=== PATIENT | male | born 1985 | race Caucasian/White ===

== ENCOUNTER 2021-07-24 22:47 | Emergency (ER) | payer BC, OTHER ==
[~2021-07-24] VITALS: Ht 175 cm; Wt 102.0 kg
--- NOTE | 2021-07-25 01:32 | ED Cough/URI ---
General Chief Complaint: COVID19 Suspect/Confirmed Stated Complaint: COUGH/CONGESTION/DIARRHEA/RUNNY NOSE Nursing Triage Note: PT REPORTS SORE THROAT, RUNNY NOSE X4-5 DAYS. HAS KNOWN INFLUENZA EXPOSURE Source: patient History of Present Illness Date Seen by Provider: Jul 25, 2021 Time Seen by Provider: 00:18 Initial Comments PT ARRIVES VIA POV FROM HOME STATES HE HAS BEEN SICK FOR 5 DAYS WITH COUGH AND CONGESTION, CLEAR RUNNY NOSE AND SORE THROAT NO FEVER NO SHORTNESS OF BREATH NO GI SYMPTOMS NO HEADACHE NO BODY ACHES CHILDREN HAVE TESTED + FOR INFLUENZA A. SYMPTOMS NO DIFFERENT TONIGHT IN ANY WAY HAS NOT SOUGHT CARE UNTIL TONIGHT HAS NOT TAKEN ANYTHING FOR SYMPTOMS PT HAS NOT HAD FLU VACCINE OR COVID-19 VACCINE. Allergies and Home Medications Allergies Coded Allergies: No Known Drug Allergies (Unverified , 07/24/21) Patient Home Medication List Home Medication List Reviewed: Yes Review of Systems Review of Systems Constitutional: no symptoms reported EENTM: see HPI, nose congestion, throat pain Respiratory: see HPI, cough; No short of breath Cardiovascular: no symptoms reported Gastrointestinal: no symptoms reported Genitourinary: no symptoms reported Musculoskeletal: no symptoms reported Skin: no symptoms reported Psychiatric/Neurological: No Symptoms Reported Hematologic/Lymphatic: No Symptoms Reported Immunological/Allergic: no symptoms reported Past Tfrrulf-Sfqsfn-Olybkh Hx Past Medical History Surgeries: No Respiratory: No Cardiac: No Neurological: No Genitourinary: No Gastrointestinal: No Musculoskeletal: No Endocrine: No HEENT: No Cancer: No Psychosocial: No Integumentary: No Blood Disorders: No Physical Exam Vital Signs - First Documented 07/24/21 23:56 Temp 37.6 Pulse 104 Resp 20 B/P (MAP) 166/87 (113) Pulse Ox 97 O2 Delivery Room Air Capillary Refill : Less Than 3 Seconds Height: '" Weight: lbs. oz. kg; 33.00 BMI Method: General Appearance: WD/WN, no apparent distress, other (DOES NOT APPEAR ILL OR TO BE IN ANY DISCOMFORT OR DISTRESS. ) HEENT: PERRL/EOMI, normal ENT inspection, TMs normal, pharynx normal, other (MILD NASAL CONGESTION) Neck: normal inspection Respiratory: normal breath sounds, no respiratory distress, no accessory muscle use Cardiovascular: regular rate, rhythm, no murmur Gastrointestinal: soft Extremities: normal inspection, normal capillary refill Neurologic/Psychiatric: no motor/sensory deficits, alert, normal mood/affect, oriented x 3 Skin: normal color, warm/dry Progress/Results/Core Measures Suspected Sepsis SIRS Temperature: Pulse: 104 Respiratory Rate: 20 Blood Pressure 166 /87 Mean: 113 Results/Orders Lab Results Laboratory Tests Test 07/24/21 23:55 Range/Units Influenza Type A (RT-PCR) Not Detected Not Detecte Influenza Type B (RT-PCR) Not Detected Not Detecte SARS-CoV-2 RNA (RT-PCR) Detected H Not Detecte My Orders Orders - SWATHI DEVI DO Covid 19 Inhouse Test (07/25/21 00:17) Influenza A And B By Pcr (07/25/21 00:17) Isolation Central Supply Req (07/25/21 00:17) Vital Signs/I&O 07/24/21 07/25/21 23:56 08:05 Temp 37.6 Pulse 104 98 Resp 20 18 B/P (MAP) 166/87 (113) 154/77 Pulse Ox 97 98 O2 Delivery Room Air Room Air Capillary Refill : Less Than 3 Seconds Blood Pressure Mean: 113 Progress Note : Progress Note PLACED IN ISOLATION ROOM PPE WORN AT ALL TIMES COVID-19 AND FLU TESTING DONE DISCUSSED ANTICIPATED COURSE AND NEED FOR QUARANTINE Departure Impression Primary Impression: COVID-19 virus infection Disposition: 01 HOME, SELF-CARE Condition: Stable Departure-Patient Inst. Decision time for Depature: 01:30 Patient Instructions: COVID-19 ED, Preventing the Spread of an Infectious Disease Add. Discharge Instructions: LOTS OF CLEAR LIQUIDS TYLENOL AND MOTRIN NEEDED FOR PAIN OR FEVER OVER THE COUNTER MEDICATIONS FOR COUGH AND CONGESTION FOLLOW UP WITH YOUR DR NEEDED, RETURN TO ER IF SYMPTOMS WORSEN QUARANTINE FOR 10 DAYS All discharge instructions reviewed with patient and/or family. Voiced understanding. Work/School Note: Work Release Form Date Seen in the Emergency Department: Jul 24, 2021 Return to Work: Aug 04, 2021 SWATHI DEVI DO Jul 25, 2021 01:31
[2021-07-25 08:05] VITALS: BP 154/77
== END 2021-07-25 01:41 | disposition home or self-care (01) ==
LOC: EDUNIT# 22:47 → ER 22:52
DX: U07.1 COVID-19 (principal)
CPT/HCPCS: 87636; 99283